=== PATIENT | female | born 2000 | race Caucasian/White ===

== ENCOUNTER 2024-12-20 15:35 | Outpatient (CLI) | payer OTHER ==
[~2024-12-20] VITALS: Ht 167.6 cm; Wt 86.2 kg
[2024-12-20 15:10] VITALS: BP 109/73
[2024-12-20 15:14] VITALS: BP 106/71
[2024-12-20 18:36] VITALS: BP 109/73
== END 2024-12-20 18:44 | disposition home or self-care (01) ==
LOC: OBS/DEL 15:35
PROVIDERS: ATTEND Obstetrics & Gynecology
DX: O26.892 Other specified pregnancy related conditions, second trimester (principal); Z3A.26 26 weeks gestation of pregnancy

== ENCOUNTER 2025-02-05 11:08 | Inpatient (IN) | payer OTHER ==
[~2025-02-05] VITALS: Ht 167.6 cm; Wt 101.6 kg
[2025-02-05 11:39] VITALS: BP 150/100; BP 153/84; O2SAT 99
[2025-02-05] MEDS ORDERED: BETAMETHASONE ACETATE,SOD PHOS 30 MG/5 ML ML IM STA (11:43)
[2025-02-05] MEDS ORDERED: RINGERS SOLUTION,LACTATED 1,000 ML IV SCH (11:45)
[2025-02-05] MEDS ORDERED: PRENATAL TABLE1 EAC4 PO (12:17)
[2025-02-05 12:36] LABS: BASO % 0.2 % (0.1-1.2); EOS # 0.05 (0.04-0.54); EOS % 0.5 % (0.7-7.0); LYMPH # 1.75 (1.18-3.74); LYMPH % 18.5 % (19.3-53.1); MEAN PLATELET VOLUME 11.00 fl (9.4-12.4); MONO # 0.48 (0.24-0.82); MONO % 5.1 % (4.7-12.5); NEUT # 7.12 (1.56-6.13); NEUT % 75.2 % (34.0-71.1); RED CELL DISTRIBUTION WIDTH 15.5 % (11.6-14.4); URINE APPEARANCE Clear; URINE BILIRRUBIN Negative (NEGATIVE); URINE BLOOD Negative; URINE COLOR Yellow; URINE GLUCOSE Negative (NEGATIVE); URINE KETONE Trace (NEGATIVE); URINE LEUKOCYTE Small; URINE NITRATE Negative; URINE UROBILINOGEN 0.2 E.U./dl
[2025-02-05 12:40] LABS: URINE BACTERIA 338.3 uL (0.0-1933); URINE CAST 2.78 uL (0.0-1.40); URINE EPITHELIAL CELLS 23.9 uL (0.0-38.8); URINE RBC 4.3 uL (0.0-20.8); URINE WBC 25.8 uL (0.0-23.2)
[2025-02-05 12:53] LABS: INR < 0.93
[2025-02-05 13:01] LABS: URINE PROTEIN 300 (NEGATIVE)
[2025-02-05 13:25] LABS: ALT/SGPT 28.0 U/L (12-78); AST/SGOT 21.0 U/L (15-37); BILIRUBIN TOTAL 0.21 mg/dL (0.3-1.2); BUN CREA RATIO 14.0 (7.0-25.0); CREATININE SERUM 0.66 mg/dL (0.55-1.02); GFR 110.98; GLOBULINA 3.6 G/DL (2.4-3.5); GLUCOSE FASTING 65.0 mg/dL (65-100); LDH 265.0 U/L (84-246); OSMOLALITY SERUM 282.0 MOSM/KG (275-295)
[2025-02-05] MEDS ORDERED: MAGNESIUM SULFATE IN WATER 0.04 GM/ML IV.SOLN IV ONE (13:26)
[2025-02-05] MEDS ORDERED: MAGNESIUM SULFATE IN WATER 4 GM/100 ML PIGGYBACK IV ONE (13:26)
[2025-02-05 13:37] VITALS: BP 154/82
[2025-02-05] MEDS ORDERED: MAGNESIUM SULFATE IN WATER 100 ML IV ONE (13:45)
[2025-02-05] MEDS ORDERED: MAGNESIUM SULFATE IN WATER 500 ML IV SCH (13:45)
[2025-02-05] MEDS ORDERED: ACETAMINOPHEN 500 MG GEL..CAP PO PRN (14:15)
[2025-02-05] MEDS ORDERED: ONDANSETRON HCL 2 MG/ML VIAL IV PRN (14:15)
[2025-02-05 15:01] VITALS: BP 138/86
[2025-02-05] MEDS ORDERED: FAMOTIDINE/PF 20 MG/2 ML VIAL IV PUSH SCH (17:00)
[2025-02-05] MEDS ORDERED: LABETALOL HCL 200 MG TABLET PO SCH (17:39)
[2025-02-05 18:49] VITALS: BP 121/77; O2SAT 98
[2025-02-05 23:14] VITALS: BP 109/62
[2025-02-06 03:10] VITALS: BP 115/69
[2025-02-06 06:45] VITALS: BP 145/95; O2SAT 98
[2025-02-06 11:25] VITALS: BP 120/85; O2SAT 100
[2025-02-06] MEDS ORDERED: BETAMETHASONE ACETATE,SOD PHOS 30 MG/5 ML ML IM NR (12:00)
[2025-02-06 15:12] VITALS: BP 118/70
[2025-02-06 19:27] VITALS: BP 131/79
[2025-02-06 20:14] LABS: BASO % 0.1 % (0.1-1.2); EOS # 0.00 (0.04-0.54); EOS % 0.0 % (0.7-7.0); LYMPH # 1.06 (1.18-3.74); LYMPH % 9.8 % (19.3-53.1); MEAN PLATELET VOLUME 10.90 fl (9.4-12.4); MONO # 0.20 (0.24-0.82); MONO % 1.9 % (4.7-12.5); NEUT # 9.41 (1.56-6.13); NEUT % 87.3 % (34.0-71.1); RED CELL DISTRIBUTION WIDTH 15.7 % (11.6-14.4)
[2025-02-06 20:48] LABS: ALT/SGPT 27.0 U/L (12-78); AST/SGOT 17.0 U/L (15-37); BILIRUBIN TOTAL 0.13 mg/dL (0.3-1.2); BUN CREA RATIO 13.0 (7.0-25.0); CREATININE SERUM 0.94 mg/dL (0.55-1.02); GFR 73.79; GLOBULINA 3.8 G/DL (2.4-3.5); GLUCOSE FASTING 130.0 mg/dL (65-100); OSMOLALITY SERUM 277.0 MOSM/KG (275-295)
[2025-02-06 23:05] VITALS: BP 117/69
[2025-02-07] VITALS (7 sets, daily range): BP systolic 120–156; BP diastolic 68–90; O2SAT 95–99
[2025-02-07] MEDS ORDERED: CITRIC ACID/SODIUM CITRATE 30 ML BLIST.PACK PO SCH (15:45)
[2025-02-07] MEDS ORDERED: CEFAZOLIN SODIUM 1,000 MG VIAL IV SCH (15:45)
[2025-02-07 15:58] LABS: BASO % 0.1 % (0.1-1.2); EOS # 0.00 (0.04-0.54); EOS % 0.0 % (0.7-7.0); LYMPH # 1.66 (1.18-3.74); LYMPH % 14.7 % (19.3-53.1); MEAN PLATELET VOLUME 11.00 fl (9.4-12.4); MONO # 0.79 (0.24-0.82); MONO % 7.0 % (4.7-12.5); NEUT # 8.58 (1.56-6.13); NEUT % 76.2 % (34.0-71.1); RED CELL DISTRIBUTION WIDTH 16.1 % (11.6-14.4)
[2025-02-07] MEDS ORDERED: OXYTOCIN 10 UNITS/ML VIAL ONE (16:17)
[2025-02-07] MEDS ORDERED: ERYTHROMYCIN BASE OPHT 1GM EACH TUBE OP ONE (16:17)
[2025-02-07 16:31] LABS: ALT/SGPT 24.0 U/L (12-78); AST/SGOT 17.0 U/L (15-37); BILIRUBIN TOTAL 0.1 mg/dL (0.3-1.2); BUN CREA RATIO 18.0 (7.0-25.0); CREATININE SERUM 0.76 mg/dL (0.55-1.02); GFR 94.31; GLOBULINA 3.4 G/DL (2.4-3.5); GLUCOSE FASTING 98.0 mg/dL (65-100); OSMOLALITY SERUM 287.0 MOSM/KG (275-295)
[2025-02-07 16:34] LABS: URINE APPEARANCE Clear; URINE BILIRRUBIN Negative (NEGATIVE); URINE BLOOD Negative; URINE COLOR Yellow; URINE GLUCOSE Negative (NEGATIVE); URINE KETONE Negative (NEGATIVE); URINE LEUKOCYTE Small; URINE NITRATE Negative; URINE UROBILINOGEN 0.2 E.U./dl
[2025-02-07 16:38] LABS: URINE BACTERIA 539.7 uL (0.0-1933); URINE EPITHELIAL CELLS 9.6 uL (0.0-38.8); URINE RBC 3.2 uL (0.0-20.8); URINE WBC 50.1 uL (0.0-23.2)
[2025-02-07 16:41] LABS: URINE CAST 0.43 uL (0.0-1.40); URINE PROTEIN 100 (NEGATIVE)
[2025-02-07 17:16] LABS: INR < 0.93
[2025-02-07] MEDS ORDERED: ACETAMINOPHEN 325 MG TABLET PO SCH (18:13)
[2025-02-07] MEDS ORDERED: OXYTOCIN 1,000 ML IV SCH (18:15)
[2025-02-07] MEDS ORDERED: MORPHINE SULFATE 4 MG/ML CARTRIDGE IV PRN (18:15)
[2025-02-07] MEDS ORDERED: LABETALOL HCL 300 MG TABLET PO SCH (18:17)
[2025-02-07] MEDS ORDERED: MORPHINE SULFATE 4 MG/ML VIAL IV ONE ×2 (18:40→19:55)
[2025-02-07] MEDS ORDERED: hydrALAZINE HCL 20 MG VIAL ONE (19:36)
[2025-02-07] MEDS ORDERED: hydrALAZINE HCL 20 MG VIAL IV ONE (19:45)
[2025-02-07] MEDS ORDERED: MAGNESIUM SULFATE IN WATER 0.04 GM/ML IV.SOLN IV SCH (19:45)
[2025-02-07] MEDS ORDERED: MAGNESIUM SULFATE IN WATER 500 ML IV SCH (21:00)
[2025-02-08] VITALS (8 sets, daily range): BP systolic 114–143; BP diastolic 77–85; O2SAT 96–97
[2025-02-08] MEDS ORDERED: ACETAMINOPHEN 325 MG TABLET PO PRN (02:44)
[2025-02-08] MEDS ORDERED: MORPHINE SULFATE 4 MG/ML CARTRIDGE IV PRN (02:44)
[2025-02-08] MEDS ORDERED: MAGNESIUM SULFATE IN WATER 0.04 GM/ML IV.SOLN IV SCH (07:00)
[2025-02-08] MEDS ORDERED: ACETAMINOPHEN 500 MG GEL..CAP PO PRN (14:15)
[2025-02-08] MEDS ORDERED: ACETAMINOPHEN 500 MG GEL..CAP PO ONE (20:54)
[2025-02-09 03:22] VITALS: BP 130/80
[2025-02-09 07:25] VITALS: BP 151/89
[2025-02-09] MEDS ORDERED: NIFEDIPINE 30 MG TAB.SA.OSM PO SCH (09:08)
[2025-02-09] MEDS ORDERED: NIFEDIPINE 30 MG TAB.SA.OSM PO STA (09:16)
[2025-02-09 11:21] VITALS: BP 136/80
[2025-02-09 18:48] VITALS: BP 115/78
[2025-02-10] VITALS: BP 125/77; O2SAT 99
[2025-02-10 08:31] VITALS: BP 133/85
[2025-02-10 17:00] VITALS: BP 121/78
[2025-02-11 00:31] VITALS: BP 127/31; O2SAT 99
[2025-02-11 08:15] VITALS: BP 117/80
[2025-02-11 16:22] VITALS: BP 138/86
== END 2025-02-11 18:09 | disposition home or self-care (01) | DRG 788 ==
LOC: NST 11:08 → OB/GYN 11:41 → LDR 11:41 → O/R 02-07 17:03 → OB/GYN 02-07 18:21 → LDR 02-08 15:20 → OB/GYN 02-09 09:14
PROVIDERS: ADMIT Obstetrics & Gynecology Gynecology; ATTEND Obstetrics & Gynecology Gynecology
PROC: 4A1HXCZ Monitoring of Products of Conception, Cardiac Rate, External Approach (ICD-10-PCS; 2025-02-05)
PROC: 10D00Z1 Extraction of Products of Conception, Low, Open Approach (ICD-10-PCS; principal; 2025-02-07 16:00)
DX: O14.04 Mild to moderate pre-eclampsia, complicating childbirth (principal); O69.81X0 Labor and delivery complicated by cord around neck, without compression, not applicable or unspecified; O60.14X0 Preterm labor third trimester with preterm delivery third trimester, not applicable or unspecified; O32.9XX0 Maternal care for malpresentation of fetus, unspecified, not applicable or unspecified; Z37.0 Single live birth; Z3A.33 33 weeks gestation of pregnancy

== ENCOUNTER 2025-02-15 08:45 | Emergency (ER) | payer OTHER ==
[~2025-02-15] VITALS: Ht 167.6 cm; Wt 99.8 kg
[~2025-02-15 08:45] MED LIST: PRENATAL TABLE1 EAC4 PO
[2025-02-15 10:56] LABS: COVID-19 AG NEGATIVE (NEGATIVE)
== END 2025-02-15 11:49 | disposition home or self-care (01) ==
LOC: ER 08:45
PROVIDERS: Emergency Medicine
DX: R06.02 Shortness of breath (principal); Z91.030 Bee allergy status; Z20.822 Contact with and (suspected) exposure to COVID-19